=== PATIENT | male | born 1940 | race Caucasian/White ===

== ENCOUNTER 2017-06-02 12:56 | Emergency (ER) | payer MEDICARE, OTHER ==
[~2017-06-02] VITALS: Ht 170.2 cm; Wt 113.4 kg
[~2017-06-02 12:56] MED LIST: ALBU8.5H2 IH; AMOX500C2 PO; ASPI-504 PO; ASPI-84 PO; BENZ-13 PO; CARV25TA PO; CEFU500T5 PO; CIPR500T78 PO; CLIN300C3 PO; CLOP75TA PO; CLOP75TA28 PO; CLOT15CR4 TP; FLT05NA16 NS; FRSM40T; FRSM40T PO; FURO-124 PO; GABA-486 PO; GBPN300C PO; GLIM2TAB PO; HYDR-757 PO; IBUP-2055 PO; INSA10V1 SC; INSU100I23 SQ; KCL10CCR PO; LASIX; LEVE1U SQ; LEVO250T7 PO; LEVO500T69 PO; LINA5TAB PO; LISI-556 PO; LISI10TA PO; LORA10CA PO; LORA10TA7 PO; METF-380 PO; METF500T61 PO; NFIPRATRNS NS; PRCD5U PO; ROSU10TA12 PO; ROSU20TA PO; SPIR50TA27; TRIA1CAP4 PO
[2017-06-02 13:19] LABS: BASOPHILS % (AUTO) 0 % (0-10); EOSINOPHILS % (AUTO) 0 % (0-10); HEMATOCRIT 44 % (40-54); HEMOGLOBIN 14.4 G/DL (13.3-17.7); LYMPHOCYTES # (AUTO) 0.5 X 10^3 (1.0-4.0); LYMPHOCYTES % (AUTO) 9 % (12-44); MEAN CORPUSCULAR HEMOGLOBIN 31 PG (25-34); MEAN CORPUSCULAR HGB CONC 32 G/DL (32-36); MEAN CORPUSCULAR VOLUME 95 FL (80-99); MONOCYTES # (AUTO) 0.4 X 10^3 (0.0-1.0); MONOCYTES % (AUTO) 8 % (0-12); NEUTROPHILS # (AUTO) 4.7 X 10^3 (1.8-7.8); NEUTROPHILS % (AUTO) 83 % (42-75); PLATELET COUNT 74 10^3/uL (130-400); RED BLOOD COUNT 4.68 10^6/uL (4.35-5.85); WHITE BLOOD COUNT 5.6 10^3/uL (4.3-11.0)
[2017-06-02 13:39] LABS: ALBUMIN 2.9 GM/DL (3.2-4.5); BILIRUBIN,TOTAL 0.7 MG/DL (0.1-1.0); CALCIUM 8.9 MG/DL (8.5-10.1); CREATININE SERUM 3.78 MG/DL (0.60-1.30); POTASSIUM 4.6 MMOL/L (3.6-5.0)
[2017-06-02 13:58] LABS: TSH (THYROID ANALYZER) 6.15 UIU/ML (0.35-4.94)
[2017-06-02 14:00] LABS: CLARITY,URINE SLIGHTLY CLOUDY; COLOR,URINE YELLOW; GLUCOSE, URINE (UA) 1+ (NEGATIVE); KETONES,URINE NEGATIVE (NEGATIVE); LEUKOCYTE ESTERASE ,URINE 1+ (NEGATIVE); NITRITE,URINE NEGATIVE (NEGATIVE); PH,URINE 5 (5-9); PROTEIN,URINE 4+ (NEGATIVE); UROBILINOGEN,URINE 1 MG/DL (NORMAL)
--- NOTE | 2017-06-02 14:00 | Diagnostic Imaging Report ---
INDICATION: Congestive heart failure. EXAMINATION: Portable chest at 1:44 PM. FINDINGS: There is cardiomegaly with pulmonary vascular congestion and a large left effusion. The patient has had prior median sternotomy surgery. IMPRESSION: Congestive heart failure with left pleural effusion. Dictated by: Dictated on workstation # [id number]
[2017-06-02 14:06] VITALS: BP 145/90
--- NOTE | 2017-06-02 14:06 | ED General ---
General Chief Complaint: General Problems/Pain Stated Complaint: NOT EATING/NOT TAKING MEDS Nursing Triage Note: TO ED PER [facility] FAMILY REPORT HE HAS NOT BEEN EATING OR TAKING MEDS FOR SEVERAL DAYS. PATIET LYING ON L SIDE SWELLING IN LEGS AND ABD NOTED. REDNESS WITH BREAK DOWN NOTED BETWEEN LEGS. REDNESS NOTED TO LOWER LEGS. Nursing Sepsis Screen: No Definite Risk Source of Information: EMS, Family, Old Records Exam Limitations: Physical Impairments History of Present Illness Date Seen by Provider: Jun 02, 2017 Time Seen by Provider: 12:57 Initial Comments This 77-year-old man presents to the emergency room via [facility] for reasons of debility. His physicians are Dr. Harp in [place] and Dr. Contreras and Dr. Jaimes in [place], but he requested to come to via [facility] [place] rather than the facility where his providers are. He refused to allow EMS to transport him to [place]. reports patient has been noncompliant with his medications for at least 2 days and has been generally ill for several days. He appears extremely debilitated with skin breakdown and irritation especially between the legs. He is leaking urine. Patient has marked edema, especially of the left side. He appears to have been lying on the left side for quite some time resulting in dependent edema there. Patient has a history of coronary artery disease, congestive heart failure, chronic edema, and diabetes. He is insulin-dependent but has not had his insulin the last couple of days because he has not been eating. He is afebrile. He is extremely hard of hearing. He does not appear to be comprehending much of what is said to him. Patient's reports she tried to get him to come to the hospital on Thursday but he refused. He also would not go to his primary care office yesterday. His believes he has been rather depressed lately which she believes has contributed to his noncompliance. Allergies and Home Medications Allergies Coded Allergies: No Known Drug Allergies (Unverified , 10/06/13) Home Medications Carvedilol 25 Mg Tablet, 25 MG PO BID, (Reported) Clopidogrel Bisulfate 75 Mg Tablet, 75 MG PO DAILY Prescribed by: MAURICIO MATHEW on 04/22/15 0906 Clotrimazole/Betamethasone Dip 15 Gm Cream..g., TP TID PRN for RASH, (Reported) Gabapentin 100 Mg Capsule, 100 MG PO HS, (Reported) Hydrocodone/Acetaminophen 1 Each Tablet, 1 TAB PO BID PRN for PAIN, (Reported) Insulin Determir 100 U/Ml Insuln.pen, 60 UNITS SQ DAILY, (Reported) LAST FILLED 02/12/15 #30 ML Insulin Lispro 100 Unit/1 Ml Insuln.pen, 15 UNITS SQ TID, (Reported) BEFORE MEALS / LAST FILLED 11/16/14 #15 ML Rosuvastatin Calcium 20 Mg Tablet, 20 MG PO DAILY, (Reported) LAST FILLED 02/26/15 #30 Patient Home Medication List Home Medication List Reviewed: Yes Constitutional: see HPI, weakness EENTM: hearing loss, other (marked edema of the left face) Respiratory: no symptoms reported Cardiovascular: see HPI Gastrointestinal: see HPI Genitourinary: see HPI Musculoskeletal: see HPI Skin: see HPI Psychiatric/Neurological: See HPI Hematologic/Lymphatic: No Symptoms Reported Immunological/Allergic: no symptoms reported Past Bntvyhh-Ucpthk-Mizprf Hx Patient Social History Alcohol Use: Denies Use Recreational Drug Use: No (tobaccoism) Smoking Status: Unknown if Ever Smoked Recent Foreign Travel: No Contact w/Someone Who Travel: No Recent Infectious Disease Expo: No Recent Hopitalizations: Yes (UNSURE OF WHEN AND WHAT HAPPENED BUT HAS A SCAR FROM HIS BELLY DOWN. ) Immunizations Up To Date Date of Pneumonia Vaccine: Dec 22, 2011 Date of Influenza Vaccine: Dec 22, 2011 Surgeries History of Surgeries: Yes (back surgery, hernia repair) Surgeries: CABG, Coronary Stent, Open Heart Surgery, Orthopedic Respiratory History of Respiratory Disorde: No Currently Using CPAP: No Currently Using BIPAP: No Cardiovascular History of Cardiac Disorders: Yes (HTN, cardiac, cardiac arrest, congestive heart failure) Cardiac Disorders: Cardiomyopathy, Coronary Artery Disease, Heart Attack, Hypertension Neurological History of Neurological Disord: No Reproductive System Hx Reproductive Disorders: No Genitourinary History of Genitourinary Disor: No Gastrointestinal History of Gastrointestinal Di: No Musculoskeletal History of Musculoskeletal Dis: No Endocrine History of Endocrine Disorders: Yes Endocrine Disorders: Diabetes, Insulin dep HEENT Loss of Vision: Denies Hearing Impairment: Denies Cancer History of Cancer: No Psychosocial History of Psychiatric Problem: No Integumentary History of Skin or Integumenta: No Blood Transfusions History of Blood Disorders: No Family Medical History Significant Family History: No Pertinent Family Hx Family Medial History: Asthma 19 MOTHER Cardiovascular disease G8 BROTHER FH: COPD (chronic obstructive pulmonary disease) G8 BROTHER Hypercholesterolemia 19 MOTHER G8 BROTHER Hypertension 19 MOTHER Myocardial infarction G8 BROTHER Polio G8 SISTER Physical Exam Vital Signs Vital Signs - First Documented 06/02/17 06/02/17 12:56 14:06 Temp 88.0 Pulse 52 Resp 18 B/P (MAP) 100/61 (74) Pulse Ox 93 O2 Delivery Room Air O2 Flow Rate 3.00 Capillary Refill : Less Than 3 Seconds General Appearance: WD/WN, Obese HEENT: PERRL/EOMI (right eye is swollen shut), Other (Marked edema of the left face) Neck: Normal Inspection Respiratory: Lungs Clear, Normal Breath Sounds, No Accessory Muscle Use, No Respiratory Distress, Decreased Breath Sounds Cardiovascular: Regular Rate, Rhythm, No Murmur, Other (edema noted in the face and abdomen and to a lesser degree in the extremities. Capillary refill is up to 10 seconds on some digits.) Gastrointestinal: Non Tender, Soft, Other (edematous) Genital/Rectal: Other (erythema and skin breakdown in the groin including around the penis) Extremity: Pedal Edema, Swelling, Other (anasarca, especially on the left) Neurologic/Psychiatric: Alert, Abnormal weight checker II-XII (very hard of hearing), Motor Weakness (global), Other (confused and disoriented.) Skin: Cool, Ecchymosis (scattered on the extremities), Other (poor capillary refill throughout. Warm moist skin breakdown noted in the groin. Skin is oozes blood after cleaning) Focused Exam Evaluation Lactate Level Laboratory Tests 06/02/17 14:49: Lactic Acid Level 1.56 Lactic Acid Level Laboratory Tests Test 06/02/17 14:49 Lactic Acid Level 1.56 MMOL/L (0.50-2.00) Progress/Results/Core Measures Suspected Sepsis Recent Fever Within 48 Hours: No Infection Criteria Present: None New/Unexplained Altered Menta: No Sepsis Screen: No Definite Risk Sepsis Diagnosis: SIRS Temperature: Pulse: 52 Respiratory Rate: 18 Laboratory Tests 06/02/17 13:07: White Blood Count 5.6 Blood Pressure 100 /61 Mean: 74 Laboratory Tests 06/02/17 14:49: Lactic Acid Level 1.56 Laboratory Tests 06/02/17 13:07: Creatinine 3.78H, Platelet Count 74L, Total Bilirubin 0.7 Results/Orders Lab Results Laboratory Tests Test 06/02/17 13:07 06/02/17 13:40 06/02/17 14:49 Range/Units White Blood Count 5.6 4.3-11.0 10^3/uL Red Blood Count 4.68 4.35-5.85 10^6/uL Hemoglobin 14.4 13.3-17.7 G/DL Hematocrit 44 40-54 % Mean Corpuscular Volume 95 80-99 FL Mean Corpuscular Hemoglobin 31 25-34 PG Mean Corpuscular Hemoglobin Concent 32 32-36 G/DL Red Cell Distribution Width 18.0 H 10.0-14.5 % Platelet Count 74 L 130-400 10^3/uL Mean Platelet Volume 7.4-10.4 FL Neutrophils (%) (Auto) 83 H 42-75 % Lymphocytes (%) (Auto) 9 L 12-44 % Monocytes (%) (Auto) 8 0-12 % Eosinophils (%) (Auto) 0 0-10 % Basophils (%) (Auto) 0 0-10 % Neutrophils # (Auto) 4.7 1.8-7.8 X 10^3 Lymphocytes # (Auto) 0.5 L 1.0-4.0 X 10^3 Monocytes # (Auto) 0.4 0.0-1.0 X 10^3 Eosinophils # (Auto) 0.0 0.0-0.3 10^3/uL Basophils # (Auto) 0.0 0.0-0.1 10^3/uL Sodium Level 140 135-145 MMOL/L Potassium Level 4.6 3.6-5.0 MMOL/L Chloride Level 108 H 98-107 MMOL/L Carbon Dioxide Level 18 L 21-32 MMOL/L Anion Gap 14 5-14 MMOL/L Blood Urea Nitrogen 95 H 7-18 MG/DL Creatinine 3.78 H 0.60-1.30 MG/DL Estimat Glomerular Filtration Rate 16 BUN/Creatinine Ratio 25 Glucose Level 110 H 70-105 MG/DL Calcium Level 8.9 8.5-10.1 MG/DL Magnesium Level 2.0 1.8-2.4 MG/DL Total Bilirubin 0.7 0.1-1.0 MG/DL Aspartate Amino Transf (AST/SGOT) 23 5-34 U/L Alanine Aminotransferase (ALT/SGPT) 20 0-55 U/L Alkaline Phosphatase 156 H 40-136 U/L C-Reactive Protein High Sensitivity 3.10 H 0.00-0.50 MG/DL B-Type Natriuretic Peptide 882.5 H <100.0 PG/ML Total Protein 7.0 6.4-8.2 GM/DL Albumin 2.9 L 3.2-4.5 GM/DL Free Thyroxine 0.81 0.70-1.48 NG/DL TSH [place] Testing 6.15 H 0.35-4.94 UIU/ML Urine Color YELLOW Urine Clarity SLIGHTLY CLOUDY Urine pH 5 5-9 Urine Specific [place] 1.025 H 1.016-1.022 Urine Protein 4+ NEGATIVE Urine Glucose (UA) 1+ H NEGATIVE Urine Ketones NEGATIVE NEGATIVE Urine Nitrite NEGATIVE NEGATIVE Urine Bilirubin 1+ H NEGATIVE Urine Urobilinogen 1 NORMAL MG/DL Urine Leukocyte Esterase 1+ H NEGATIVE Urine RBC (Auto) 5+ H NEGATIVE Urine RBC 50-100 H /HPF Urine WBC 10-25 H /HPF Urine Squamous Epithelial Cells 2-5 /HPF Urine Crystals NONE /LPF Urine Bacteria FEW H /HPF Urine Casts PRESENT /LPF Urine Hyaline Casts 10-25 H /LPF Urine Mucus NEGATIVE /LPF Urine Culture Indicated YES Lactic Acid Level 1.56 0.50-2.00 MMOL/L My Orders Orders - KASH MELENDEZ MD BNP (06/02/17 13:10) Cbc With Automated Diff (06/02/17 13:10) Comprehensive Metabolic Panel (06/02/17 13:10) Hs C Reactive Protein (06/02/17 13:10) Magnesium (06/02/17 13:10) Thyroid Analyzer (06/02/17 13:10) Ua Culture If Indicated (06/02/17 13:10) Saline Lock/Iv-Start (06/02/17 13:10) Catheter(Urinary) Insert & Ass ,15 (06/02/17 13:10) Monitor-Rhythm Ecg Trace Only (06/02/17 13:10) Chest 1 View, Ap/Pa Only (06/02/17 13:10) Free T4 (Free Thyroxine) (06/02/17 13:07) Urine Culture (06/02/17 13:40) Ceftriaxone Injection (Rocephin Injectio (06/02/17 14:15) Lactic Acid Analyzer (06/02/17 14:11) Blood Culture (06/02/17 14:11) Ns Iv 1000 Ml (Sodium Chloride 0.9%) (06/02/17 14:11) Medications Given in ED Current Medications Medications Dose Ordered Sig/[place] Route Start Time Stop Time Status Last Admin Dose Admin Ceftriaxone Sodium 1000 mg/ Sodium Chloride 100 ml @ 200 mls/hr ONCE ONCE IV 06/02/17 14:15 06/02/17 14:44 DC 06/02/17 14:55 200 MLS/HR Vital Signs/I&O Vital Sign - Last 12Hours 06/02/17 06/02/17 06/02/17 12:56 14:06 14:56 Temp 88.0 Pulse 52 62 62 Resp 18 20 20 B/P (MAP) 100/61 (74) 145/90 (108) 110/68 (82) Pulse Ox 93 92 93 O2 Delivery Room Air Nasal Cannula OxyMask O2 Flow Rate 3.00 6.00 Capillary Refill : Less Than 3 Seconds Blood Pressure Mean: 74 Progress Note #1: Time: 14:30 Progress Note Patient was found to be in acute on chronic renal failure and in congestive heart failure with pulmonary congestion and pleural effusion on the left. The majority of patient's edema is on the left extremities, left face, and left lung. This would suggest he has been sedentary lying on the left side for quite some time. Patient was also found to be hypothermic with a core body temperature of 30. He is presently receiving warm IV fluids at 200 mL per hour , and he is being warmed with a bear hugger. Blood cultures and lactic acid are being drawn and Rocephin is being administered for initial treatment of urinary tract infection and suspected sepsis. I discussed options for care with his . She requests aggressive therapy at this time and agrees to transfer to a tertiary care facility. Dr. Olson, associate professor of art at [facility], was contacted at 14:25. He agrees to accept the patient. Patient is maintaining normal vital signs at this time with the exception of the hypothermia which is improving. Oxygen saturation is running at 90-92 percent on 3-4 L nasal cannula. He is producing urine in his Mendoza catheter. I did discuss poor prognosis with patient's . She states they have never specifically discussed CODE STATUS or end-of-life decisions. At this time she wishes to treat him aggressively. Progress Note #2: Time: 15:58 Progress Note Patient has now departed the emergency room with [facility]. Blood pressures were noted to be trending down over the last several pressures, but he was not hypotensive. EMS was given instructions to open up the IV fluids in a bolus if needed to maintain blood pressures. If patient begins to have respiratory complications because of fluids, they are to start CPAP. Patient's core body temperature by rectal probe increased from 30C to 32C. He was wrapped in warm blankets prior to departure. He was becoming more alert and capillary refill was improving to less than 6 seconds with treatment. Patient did receive the dose of Rocephin prior to transfer. Patient was maintaining oxygen saturations and relaxed respirations on oxygen mask at 6 L. Oxygen saturations remained above 90 percent continuously. I had further discussions with patient's and children. They are aware of the poor prognosis and the seriousness of his condition. They did like him to receive aggressive care and stay full CODE STATUS at this time. Diagnostic Imaging Diagonstic Imaging: Xray Plain Films/CT/US/NM/MRI: chest Comments Chest x-ray viewed by me and report reviewed. See report below: NAME: SLY BIRCH MED REC#: [id number] PT STATUS: REG ER : 1940 PHYSICIAN: KASH MELENDEZ MD ADMIT DATE: 06/02/17/ER Draft Date of Exam:06/02/17 CHEST 1 VIEW, AP/PA ONLY INDICATION: Congestive heart failure. EXAMINATION: Portable chest at 1:44 PM. FINDINGS: There is cardiomegaly with pulmonary vascular congestion and a large left effusion. The patient has had prior median sternotomy surgery. IMPRESSION: Congestive heart failure with left pleural effusion. Dictated on workstation # [id number] Dict: 06/02/17 1357 Trans: 06/02/17 1400 [id number] Interpreted by: RIRI FLORENTINO MD Departure Impression Impression: Primary Impression: Severe sepsis Additional Impressions: Acute on chronic renal failure Qualified Codes: N17.9 - Acute kidney failure, unspecified; N18.9 - Chronic kidney disease, unspecified Acute exacerbation of congestive heart failure Qualified Codes: I50.9 - Heart failure, unspecified Hypothermia Qualified Codes: T68.XXXA - Hypothermia, initial encounter Anasarca Urinary tract infection Qualified Codes: N39.0 - Urinary tract infection, site not specified; R31.9 - Hematuria, unspecified Pleural effusion Noncompliance Altered mental status Qualified Codes: R41.82 - Altered mental status, unspecified Disposition: 02 XFER SHT-TRM HOSP Condition: Improved Transfer Time Spoke to Accepting Phy: 14:25 Transfer Time: 15:58 Transfer Facility: To Dr. Olson at [facility] Method of Transfer: EMS Departure-Patient Inst. Referrals: RADHIKA CONTRERAS DO (PCP/Family) Primary Care Physician KASH MELENDEZ MD Jun 02, 2017 14:05
[2017-06-02 14:09] LABS: BACTERIA,URINE FEW /HPF; BILIRUBIN,URINE 1+ (NEGATIVE); RBC,URINE 50-100 /HPF
[2017-06-02] MEDS ORDERED: NS IV 1000 ML 1,000 ML IV SCH (14:11)
[2017-06-02] MEDS ORDERED: cefTRIAXone INJECTION 1,000 MG in NS (IVPB) 100 ML IV ONE (14:15)
[2017-06-02 14:47] LABS: FREE T4 (FREE THYROXINE) 0.81 NG/DL (0.70-1.48)
[2017-06-02 14:56] VITALS: BP 110/68
[2017-06-02 15:59] VITALS: BP 102/54
[2017-06-03] MEDS ORDERED: NS IV 1000 ML 1,000 ML ONE (07:25)
== END 2017-06-02 15:59 | disposition home or self-care (01) ==
LOC: EDUNIT# 12:56 → ER 12:57
DX: A41.9 Sepsis, unspecified organism (principal); R65.20 Severe sepsis without septic shock; N17.9 Acute kidney failure, unspecified; T68.XXXA Hypothermia, initial encounter; J90 Pleural effusion, not elsewhere classified; R60.1 Generalized edema; N39.0 Urinary tract infection, site not specified; R41.82 Altered mental status, unspecified; E11.22 Type 2 diabetes mellitus with diabetic chronic kidney disease; I13.0 Hypertensive heart and chronic kidney disease with heart failure and stage 1 through stage 4 chronic kidney disease, or unspecified chronic kidney disease; N18.9 Chronic kidney disease, unspecified; I50.9 Heart failure, unspecified; I25.10 Atherosclerotic heart disease of native coronary artery without angina pectoris; I42.9 Cardiomyopathy, unspecified; Z79.4 Long term (current) use of insulin; Z79.02 Long term (current) use of antithrombotics/antiplatelets; Z82.49 Family history of ischemic heart disease and other diseases of the circulatory system; Z91.14 Patient's other noncompliance with medication regimen; Z95.1 Presence of aortocoronary bypass graft; Z95.5 Presence of coronary angioplasty implant and graft; Z87.19 Personal history of other diseases of the digestive system
CPT/HCPCS: 36415; 51702; 71045; 80053; 81000; 82962; 83605; 83735; 83880; 84439; 84443; 85025; 86141; 87040; 87088; 93041; 96365